=== PATIENT | female | born 1960 | race Caucasian/White ===

== ENCOUNTER 2018-04-13 18:23 | Emergency (ER) | payer OTHER ==
[2018-04-13] MEDS: IBUPROFEN 600 MG TAB PO (19:39)
== END 2018-04-13 20:18 | disposition home or self-care (01) ==
LOC: E/R 18:23
DX: I16.0 Hypertensive urgency (principal); R40.2252 Coma scale, best verbal response, oriented, at arrival to emergency department; R40.2362 Coma scale, best motor response, obeys commands, at arrival to emergency department; R40.2142 Coma scale, eyes open, spontaneous, at arrival to emergency department; I10 Essential (primary) hypertension
CPT/HCPCS: 70450; 99284-25

== ENCOUNTER 2018-08-08 16:34 | Emergency (ER) | payer OTHER ==
[2018-08-08] MEDS: LORAZEPAM 0.5 MG TAB PO (17:21)
== END 2018-08-08 18:43 | disposition home or self-care (01) ==
LOC: FTE 18:43
DX: I10 Essential (primary) hypertension (principal); Z56.3 Stressful work schedule
CPT/HCPCS: 99283